=== PATIENT | female | born 1955 | race Caucasian/White ===

== ENCOUNTER 2017-04-14 18:04 | Emergency (ER) | payer OTHER ==
[~2017-04-14] VITALS: Ht 162.6 cm; Wt 113.4 kg
[~2017-04-14 18:04] MED LIST: IBUP-1050 PO; MULT-506 PO; OMEG10007 PO
[2017-04-14 18:09] VITALS: TEMP 36.9; Ht 162.6 cm; Wt 113.4 kg
[2017-04-14] MEDS ORDERED: ALBUT/IPRATROP 3MG/0.5MG NEB 3 ML VIAL INH STA (18:25)
[2017-04-14] MEDS ORDERED: LAMO150T32 PO (18:32)
[2017-04-14 18:59] LABS: HEMATOCRIT 40.7 % (37-47); MEAN CELL VOLUME 83.9 fL (80-100); MEAN CORPUSCULAR HEMOGLOBIN 27.6 pg (25-34); MEAN CORPUSCULAR HGB CONC 32.9 g/dl (32-36); PLATELET COUNT 403 K/uL (130-400); RED BLOOD COUNT 4.85 M/uL (4.2-5.4); WHITE BLOOD COUNT 8.22 K/uL (4.8-10.8)
--- NOTE | 2017-04-14 19:06 | EMERGENCY ROOM VISIT NOTE ---
History Report prepared by Lynne: Caro Andrews Under the Supervision of: Dr. Shola Martinez M.D. First contact with patient: 18:18 Chief Complaint: COUGH Stated Complaint: COUGH AFTER CHOKING History of Present Illness The patient is a 62 year old female who presents to the Emergency Room with complaints of a constant cough that began 3 hours prior to arrival. The patient states that she was eating a fried mozzarella stick when she began to choke. She started coughing and became lightheaded. She had a syncope episode and did experience LOC. At this time the patient's performed the Heimlich maneuver and a slap on the back. The food was then cleared from the throat. The patient states that since this she has been constantly coughing and bring up small pieces of the breading from the food. She notes that leaning back in a chair worsened these symptoms. 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 Review of Systems See HPI for pertinent positives & negatives. A total of 10 systems reviewed and were otherwise negative. Past Medical & Surgical Medical Problems: (1) Acute myocardial infarction of inferior wall (2) Angina (3) Benign hypertension (4) Carpal tunnel syndrome (5) Depression (6) Diabetes mellitus (7) Gastroesophageal reflux disease (8) Generalized osteoarthritis (9) Hiatal hernia (10) history of syncope secondary to othostasis/vasocavagal etiology (11) Hyperlipidemia (12) Seizure disorder Family History Cancer Diabetes mellitus FH: heart disease FHx: gallbladder disease Hypertension Kidney disease Kidney stones Seizures Social History Smoking Status: Never Smoker Smokeless Tobacco Use: No Alcohol Use: none Marital Status: Housing Status: lives with friends Current/Historical Medications Scheduled Fish Oil ([place]-3), 2 CAP PO BID Lamotrigine (Lamictal), 1 TAB PO DAILY Multivitamin (Multivitamin), 1 TAB PO DAILY Scheduled PRN Ibuprofen (Advil), 400 MG PO for Pain Allergies Coded Allergies: Penicillins (Verified Allergy, Mild, HIVES, 04/14/17) Sulfa Drugs (Unverified Allergy, Mild, full body rash, 04/14/17) Cephalexin (Verified Allergy, Unknown, hives, 04/14/17) Physical Exam Vital Signs Date Time Temp Pulse Resp B/P (MAP) Pulse Ox O2 Delivery O2 Flow Rate FiO2 04/14/17 20:36 80 20 107/61 97 Room Air 04/14/17 19:53 80 20 130/111 94 Room Air 04/14/17 19:27 79 04/14/17 19:05 84 20 161/80 90 Room Air 04/14/17 18:09 36.9 92 18 158/115 96 Room Air Physical Exam GENERAL: Patient is in no acute distress. HEENT: No acute trauma, normocephalic atraumatic, mucous membranes moist, no nasal congestion, no scleral icterus. NECK: No stridor, no adenopathy, no meningismus, trachea is midline. LUNGS: Clear to auscultation bilaterally, no wheeze, no rhonchi, breath sounds equal. Persistent dry cough noted. HEART: Without murmurs gallops or rubs, regular rate and rhythm. ABDOMEN: Soft, nontender, bowel sounds positive, no hernias, no peritonitis. EXTREMITIES: No cyanosis or edema, full range of motion of all the joints without pain or difficulty, no signs for acute trauma. NEUROLOGIC: Oriented x 3, no acute motor or sensory deficits, no focal weakness. SKIN: No rash, no jaundice, no diaphoresis. Medical Decision & Procedures ER Provider Diagnostic Interpretation: X-ray results as stated below per interpretation by me and the radiologist: TWO VIEW CHEST CLINICAL HISTORY: Cough and dyspnea. FINDINGS: PA and lateral chest radiographs are compared to study dated 07/02/2016. The examination is degraded by large body habitus. The cardiomediastinal silhouette is unremarkable. The lungs and pleural spaces are clear. There is no pneumothorax. The skeletal structures are osteopenic. The bony thorax appears intact. Cholecystectomy clips are noted in the right upper quadrant. IMPRESSION: No active disease in the chest. Electronically signed by: Shola Martinez M.D. 04/14/2017 7:20 PM Dictated Date/Time: 04/14/2017 7:19 PM Laboratory Results 04/14/17 18:45 04/14/17 18:45 Test 04/14/17 18:45 Red Blood Count 4.85 M/uL (4.2-5.4) Mean Corpuscular Volume 83.9 fL (80-100) Mean Corpuscular Hemoglobin 27.6 pg (25-34) Mean Corpuscular Hemoglobin Concent 32.9 g/dl (32-36) RDW Standard Deviation 41.9 fL (36.4-46.3) RDW Coefficient of Variation 13.7 % (11.5-14.5) Mean Platelet Volume 9.0 fL (7.4-10.4) Anion Gap 8.0 mmol/L (3-11) Est Creatinine Clear Calc Drug Dose 65.5 ml/min Estimated GFR () 62.3 Estimated GFR (Non- 53.8 BUN/Creatinine Ratio 18.4 (10-20) Calcium Level 8.8 mg/dl (8.5-10.1) Troponin I < 0.015 ng/ml (0-0.045) Laboratory results reviewed by me. Medications Administered Medications (Trade) Dose Ordered Sig/Rickie Route Start Time Stop Time Status Last Admin Dose Admin Albuterol/ Ipratropium (Duoneb) 3 ml NOW STAT INH 04/14/17 18:25 04/14/17 18:28 DC 04/14/17 18:40 3 ML Albuterol (Ventolin Hfa Inhaler) 2 puffs NOW ONCE INH 04/14/17 20:15 04/14/17 20:16 DC 04/14/17 20:16 2 PUFFS ECG Indication: syncope Rate (beats per minute): 80 Rhythm: normal sinus Findings: nonspecific-ST abn, no acute ischemic change, other (LVH) ED Course 1818: The patient was evaluated in room C12. A complete history and physical exam was performed. 1824: Duoneb 3 ml INH. 1846: I spoke with Dr. Colunga - Pulmonary about the patient. He says that if the X-Ray has nothing that looks like atelectasis or lung collapse the patient can go home. He states that if the X-Ray shows acute atelectasis or lung collapse to call back. 0: I went to reevaluated the patient. She is in the bathroom. I talked with the patient's . 2015: Ventolin Hfa Inhaler 2 puffs INH. 2017: Reevaluated the patient. Discussed results and discharge instructions: She verbalized understanding and agreement. The patient is ready for discharge. Medical Decision The patient is a 62 year old female who presents to the ED with complaints of coughing. Differential diagnoses considered include bronchospasm, aspiration, pulmonary foreign body, dysrhythmia. There is no leukocytosis or concerning anemia. No significant electrolyte abnormality or kidney failure. EKG shows a sinus rhythm with LVH, no acute ischemia. Cardiac enzyme testing times one is not consistent with acute cardiac injury. Chest x-ray does not show any atelectasis or pneumonia. There was no pneumothorax or mediastinal widening. The patient was given a DuoNeb, she received albuterol via [facility]. 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 He did not feel a bronchoscopy was indicated. The patient will be followed in the outpatient office. She is going to be using albuterol for bronchospasm. If things are worsening, she can return. She was talked to about her blood pressure, she will follow with her doctors office. Medication Reconciliation: I attest that I have personally reviewed the patient' s current medication list. Blood Pressure Screening: Patient was found to have an elevated blood pressure and was referred to their primary doctor for recheck and further treatment. Consults Time Called: 1844 Consulting Physician: Dr. Keanu Bosch Returned Call: [address] Keanu Bosch about the patient. He says that if the X -Ray has nothing that looks like atelectasis or lung collapse the patient can go home. He states that if the X-Ray shows acute atelectasis or lung collapse to call back. Impression Primary Impression: Choking episode Additional Impression: Bronchospasm Scribe Attestation The scribe's documentation has been prepared under my direction and personally reviewed by me in its entirety. I confirm that the note above accurately reflects all work, treatment, procedures, and medical decision making performed by me. Departure Information Dispostion Home / Self-Care Referrals Manuel Jaffe D.O. (PCP) Forms HOME CARE DOCUMENTATION FORM, IMPORTANT VISIT INFORMATION Patient Instructions My [facility] Additional Instructions albuterol 2-3 puffs every 4 hours to help the cough follow with vimal cormier for a recheck this week and for a blood pressure check call and set up appt with pulmonology return if the breathing worsens Problem Qualifiers
[2017-04-14 19:17] LABS: BLOOD UREA NITROGEN 20 mg/dl (7-18); BUN/CREATININE RATIO 18.4 (10-20); CALCIUM 8.8 mg/dl (8.5-10.1); CARBON DIOXIDE 29 mmol/L (21-32); CHLORIDE 104 mmol/L (98-107); GLUCOSE 97 mg/dl (70-99); POTASSIUM 3.2 mmol/L (3.5-5.1); SODIUM 141 mmol/L (136-145)
--- NOTE | 2017-04-14 19:21 | DIAGNOSTIC IMAGING REPORT ---
TWO VIEW CHEST CLINICAL HISTORY: Cough and dyspnea. FINDINGS: PA and lateral chest radiographs are compared to study dated 07/02/2016. The examination is degraded by large body habitus. The cardiomediastinal silhouette is unremarkable. The lungs and pleural spaces are clear. There is no pneumothorax. The skeletal structures are osteopenic. The bony thorax appears intact. Cholecystectomy clips are noted in the right upper quadrant. IMPRESSION: No active disease in the chest. Electronically signed by: Shola Martinez M.D. 04/14/2017 7:20 PM Dictated Date/Time: 04/14/2017 7:19 PM
[2017-04-14] MEDS ORDERED: ALBUTEROL HFA 8 GM INHALER INH ONE (20:15)
[2017-04-14 20:36] VITALS: BP 107/61; PULSE 80; O2SAT 97
== END 2017-04-14 20:37 | disposition home or self-care (01) ==
LOC: C.EDB 18:05 → C.EDC 20:37
DX: J98.01 Acute bronchospasm (principal); R09.89 Other specified symptoms and signs involving the circulatory and respiratory systems; I10 Essential (primary) hypertension; E11.9 Type 2 diabetes mellitus without complications; E78.5 Hyperlipidemia, unspecified; I25.2 Old myocardial infarction; K21.9 Gastro-esophageal reflux disease without esophagitis; G40.909 Epilepsy, unspecified, not intractable, without status epilepticus; F32.9 Major depressive disorder, single episode, unspecified; M19.90 Unspecified osteoarthritis, unspecified site; Z79.899 Other long term (current) drug therapy; Z88.0 Allergy status to penicillin; Z88.2 Allergy status to sulfonamides; Z88.8 Allergy status to other drugs, medicaments and biological substances; Z80.9 Family history of malignant neoplasm, unspecified; Z83.3 Family history of diabetes mellitus; Z82.49 Family history of ischemic heart disease and other diseases of the circulatory system; Z83.79 Family history of other diseases of the digestive system; Z84.1 Family history of disorders of kidney and ureter; Z82.0 Family history of epilepsy and other diseases of the nervous system

== ENCOUNTER 2017-10-22 06:49 | Emergency (ER) | payer OTHER ==
[~2017-10-22] VITALS: Ht 162.6 cm; Wt 116.4 kg
[~2017-10-22 06:49] MED LIST changes: +LAMO150T PO
[2017-10-22 06:53] VITALS: Ht 162.6 cm; Wt 116.4 kg
[2017-10-22] MEDS ORDERED: ONDANSETRON 4MG OD TAB PO STA (07:08)
[2017-10-22] MEDS ORDERED: ACETAMINOPHEN 325 MG TAB PO STA (07:08)
--- NOTE | 2017-10-22 07:42 | EMERGENCY ROOM VISIT NOTE ---
History First contact with patient: 06:57 Chief Complaint: FALL Stated Complaint: FELL ON ICE History of Present Illness The patient is a 62 year old female who presents to the Emergency Room with complaints of "fell on ice". The patient states that today around 6 AM she was at the parking lot of [facility], and fell on the ice. She states that she fell backwards striking her head and upper back off the ground. She felt that she struck quite hard. She denies any loss of consciousness but notes that she feels very dizzy and if she turns her eyes and looks to the left or moves her head she has neck pain/ dizziness. She denies any chest pain, abdominal pain, leg pain. She denies any anticoagulant use. Review of Systems A complete 10-point Review of Systems was discussed with the patient, with pertinent positives and negatives listed in the History of Present Illness. All remaining Review of Systems questions can be considered negative unless otherwise specified. Past Medical/Surgical History Medical Problems: (1) Acute myocardial infarction of inferior wall (2) Angina (3) Benign hypertension (4) Carpal tunnel syndrome (5) Depression (6) Diabetes mellitus (7) Gastroesophageal reflux disease (8) Generalized osteoarthritis (9) Hiatal hernia (10) history of syncope secondary to othostasis/vasocavagal etiology (11) Hyperlipidemia (12) Seizure disorder Family History Cancer Diabetes mellitus FH: heart disease FHx: gallbladder disease Hypertension Kidney disease Kidney stones Seizures Social History Smoking Status: Never Smoker Alcohol Use: none Marital Status: Housing Status: lives with friends Current/Historical Medications Scheduled Fish Oil ([place]-3), 2 CAP PO BID Lamotrigine (Lamictal), 150 MG PO BID Ondasetron Odt (Zofran Odt), 4 MG SL Q6H Physical Exam Vital Signs Date Time Temp Pulse Resp B/P (MAP) Pulse Ox O2 Delivery O2 Flow Rate FiO2 10/22/17 08:35 36.7 71 18 169/83 94 10/22/17 06:53 36.7 77 18 178/76 99 Room Air Physical Exam VITAL SIGNS - Vital signs and nursing notes were reviewed. Stable. GENERAL - 62-year-old female appearing her stated age who is in no acute distress. Communicates well with provider and answers questions appropriately. SKIN - Gross examination of the entire body surface demonstrates no lacerations to the body. HEAD - Normocephalic, Atraumatic. No Ruiz's Sign or Raccoon's Eyes. No depressed skull fractures palpable. EYES - PERRL with EOMI bilaterally. Without subconjunctival hemorrhage. No hyphema EARS - No deformities of external structures noted on gross examination bilaterally. No hemotympanum present. No tympanic perforation noted. Handle of malleus, umbo, cone of light, pars tensa/flaccid all easily visualized. NOSE - Midline and without cyanosis. No epistaxis or clear watery discharge noted. Septum midline without deviation. No septal hematoma noted. No overlying ecchymosis noted. MOUTH/OROPHARYNX - Without perioral cyanosis. Tongue midline with equal elevation of palate bilaterally. No blood noted in the oropharynx. No tonsillar hypertrophy, erythema, or exudates noted. No dental fractures noted. NECK - There is tenderness to palpation over the cervical spinous processes. NO cervical paraspinal muscle tenderness noted. Thoracic spine tenderness. LUNGS - Chest wall symmetric without accessory muscle use, intercostals retractions, or central cyanosis. No flail chest or depressed fractures noted. No paradoxical chest wall movements noted. No tenderness to palpation across the anterior and posterior chest park. NO tenderness with deep inspiration noted against the examiner's applied pressure to the lateral chest park. Normal vesicular breath sounds CTA B/L. No wheezes, rales, or rhonchi appreciated. CARDIAC - RRR with S1/S2. No murmur, rubs, or gallops appreciated. ABDOMEN - Abdominal contour normal and without pulsations or visible masses. BS normoactive all four quadrants. No rebound tenderness or guarding noted. No tenderness, palpable masses, hepatosplenomegaly, or ascites noted. EXTREMITIES - No gross deformities noted of the extremities. NO tenderness to palpation of the extremities. FROM with no tremors, fasciculations, or clonus noted on PROM throughout. +5/5 strength noted in UE/LE bilaterally. NEUROLOGIC - Cranial nerves II through XII grossly intact. Sensory intact to light touch throughout. PSYCH - A&Ox3 and cooperates fully with examiner. Pt is very pleasant and interacts well with examiner. Medical Decision & Procedures ER Provider Diagnostic Interpretation: CT DOSE: HISTORY: Trauma Fall on ice, head, neck and back pain TECHNIQUE: Multiaxial CT images of the head were performed without the use of intravenous contrast. A dose lowering technique was utilized adhering to the principles of ALARA. Comparison: None. Findings: The paranasal sinuses and mastoid air cells are clear. The calvarium and skull base are intact. The ventricles and sulci are within normal limits. There is no mass, hematoma, midline shift, or acute infarct. Impression: No acute intracranial abnormality. The above report was generated using voice recognition software. It may contain grammatical, syntax or spelling errors. Electronically signed by: Thor Anton M.D. 10/22/2017 7:39 AM Dictated Date/Time: 10/22/2017 7:37 AM CERVICAL SPINE W/O CT DOSE: 2143.60 mGy.cm HISTORY: Trauma Fall on ice, head, neck and back pain TECHNIQUE: Multiaxial CT images of the cervical spine were performed and reformatted in the sagittal and coronal plane without the use of contrast. A dose lowering technique was utilized adhering to the principles of ALARA. COMPARISON: None. FINDINGS: No fractures. No subluxation. Prevertebral soft tissues and the C1-C2 interval are intact. No pneumothorax. IMPRESSION: No fractures within the cervical spine. Mild degenerative disc change. The above report was generated using voice recognition software. It may contain grammatical, syntax or spelling errors. Electronically signed by: Thor Anton M.D. 10/22/2017 7:42 AM Dictated Date/Time: 10/22/2017 7:[address] DOSE: HISTORY: Trauma Fall on ice, head, neck and back pain TECHNIQUE: Multiaxial CT images of the thoracic spine were performed and reformatted in the sagittal and coronal plane without the use of contrast. A dose lowering technique was utilized adhering to the principles of ALARA. COMPARISON: None. FINDINGS: No fractures. No subluxation. Paraspinal soft tissues are unremarkable. Moderate degenerative disc change throughout. IMPRESSION: No fractures within the thoracic spine. Moderate degenerative change. The above report was generated using voice recognition software. It may contain grammatical, syntax or spelling errors. Electronically signed by: Thor Anton M.D. 10/22/2017 7:45 AM Dictated Date/Time: 10/22/2017 7:43 AM Medications Administered Medications (Trade) Dose Ordered Sig/Rickie Route Start Time Stop Time Status Last Admin Dose Admin Acetaminophen (Tylenol Tab) 650 mg NOW STAT PO 10/22/17 07:08 10/22/17 07:10 DC 10/22/17 07:19 650 MG Ondansetron HCl (Zofran Odt) 4 mg NOW STAT PO 10/22/17 07:08 10/22/17 07:10 DC 10/22/17 07:19 4 MG Medical Decision Patient was seen and evaluated as above. She presents today status post fall that occurred at 6 AM this morning. She has pain in her head, neck and upper back between her shoulder blades. There is no chest pain, abdominal pain, extremity pain. She is well on exam. CT scan was obtained with results as above. The head, neck and thoracic spine do not reveal any fracture. She does have direct midline C-spine tenderness therefore will place her in a [facility] to follow with her family doctor for potential MRI in 2 weeks if this persists. There is no neurovascular deficits appreciated on exam. She was given Tylenol for pain here as well as Zofran for her nausea. She'll be given a short prescription of Zofran for nausea. She was encouraged to use Tylenol at home for her headache. She is to refrain from any strenuous activity until her symptoms subside. She will be given a work excuse for today and the next 2 days. She was educated upon management, educated upon worrisome symptoms which to return, had questions answered prior to discharge and was discharged home in good condition. In the evaluation and treatment of this patient, the following differential diagnoses were considered: Concussion, Contrecoup Injury, Brain Tumor, Depression, Encephalitis, Hypothyroidism, Meningitis, CVA, TIA, Migraine, Cluster Headache, Intracranial Abnormality, Intracranial Hemorrhage, Subdural Hematoma, Subarachnoid Hemorrhage, Hydrocephalus, Musculoskeletal Strain, Discitis, Cervical Spine Fracture, Cervical Spine Dislocation, Cervical Spine Subluxation, Cervical Spondylosis, Fibromyalgia, Osteoarthritis, Polymyalgia Rheumatica, Psychogenic Pain Disorder, Tumor of Soft Tissue or Spine. Impression Primary Impression: Fall Additional Impressions: Contusion of multiple sites Concussion Neck pain Departure Information Dispostion Discharge/Transfer to [facility] Condition GOOD Prescriptions Ondasetron Odt (ZOFRAN ODT) 4 Mg Tab 4 MG SL Q6H for Nausea, #10 TAB Prov: Jerman Martínez PA-C 10/22/17 Referrals Sulman,Manuel A., D.O. (PCP) Patient Instructions My [facility] Additional Instructions You have been treated in the Emergency Department for a Closed Head Injury. CT Scan of your head/brain/neck/back demonstrated no acute bleeding or other emergent abnormalities. This does not completely rule out the risk for future damage to the brain. You likely have a concussion. For pain control, you can use the following [id number] medicines (if >12 yo): zofran for nausea - Regular strength (325mg/tab) Tylenol (acetaminophen) 2 tabs every 4-6 hours as needed. Do not exceed 12 tablets in a 24 hour period. Avoid taking more than 3 grams (3000 mg) of Tylenol per day. This includes any other sources of acetaminophen you may take on a regular basis. You should relax in a quiet, dark place for the rest of the day. Avoid any possible triggers including: cigarette smoke, caffeine, nicotine, chocolate, wine, beer, loud noises or music, or bright lights. You should schedule a follow-up appointment in 2-3 days with your Primary Care Provider or established Neurologist for further evaluation and treatment of your Headache. I recommend wearing the neck collar until no neck pain or follow up with family doctor for potential MRI. Return to the Emergency Department if your current symptoms worsen despite treatment course outlined above, or if you develop any of the following symptoms : intractable pain despite aforementioned treatment course, visual disturbances , loss of vision, unilateral weakness or facial drooping, slurring of speech, loss of coordination, or loss of consciousness. Problem Qualifiers
--- NOTE | 2017-10-22 07:46 | DIAGNOSTIC IMAGING REPORT ---
THORACIC SPINE WITHOUT CT DOSE: HISTORY: Trauma Fall on ice, head, neck and back pain TECHNIQUE: Multiaxial CT images of the thoracic spine were performed and reformatted in the sagittal and coronal plane without the use of contrast. A dose lowering technique was utilized adhering to the principles of ALARA. COMPARISON: None. FINDINGS: No fractures. No subluxation. Paraspinal soft tissues are unremarkable. Moderate degenerative disc change throughout. IMPRESSION: No fractures within the thoracic spine. Moderate degenerative change. The above report was generated using voice recognition software. It may contain grammatical, syntax or spelling errors. Electronically signed by: Thor Anton M.D. 10/22/2017 7:45 AM Dictated Date/Time: 10/22/2017 7:43 AM
[2017-10-22] MEDS ORDERED: ONDA4TAB10 SL (08:11)
[2017-10-22 08:35] VITALS: BP 169/83; PULSE 71; TEMP 36.7; O2SAT 94
== END 2017-10-22 08:20 | disposition home or self-care (01) ==
LOC: C.EDB 06:49
DX: S06.0X0A Concussion without loss of consciousness, initial encounter (principal); T14.8XXA Other injury of unspecified body region, initial encounter; M54.2 Cervicalgia; W00.0XXA Fall on same level due to ice and snow, initial encounter; Y92.481 Parking lot as the place of occurrence of the external cause; I25.2 Old myocardial infarction; I10 Essential (primary) hypertension; F32.9 Major depressive disorder, single episode, unspecified; E11.9 Type 2 diabetes mellitus without complications; K21.9 Gastro-esophageal reflux disease without esophagitis; M15.9 Polyosteoarthritis, unspecified; E78.5 Hyperlipidemia, unspecified; G40.909 Epilepsy, unspecified, not intractable, without status epilepticus; Z80.9 Family history of malignant neoplasm, unspecified; Z83.3 Family history of diabetes mellitus; Z82.49 Family history of ischemic heart disease and other diseases of the circulatory system; Z84.1 Family history of disorders of kidney and ureter; Z82.0 Family history of epilepsy and other diseases of the nervous system; Z79.899 Other long term (current) drug therapy